=== PATIENT | male | born 1990 | race Caucasian/White ===

== ENCOUNTER 2022-04-14 07:22 | Emergency (ER) | payer SELFPAY ==
[~2022-04-14] VITALS: Ht 172.7 cm; Wt 81.0 kg
[2022-04-14 07:41] VITALS: BP 132/72
[2022-04-14] MEDS ORDERED: ACETAMINOPHEN 325MG TABLET PO ONE (09:30)
[2022-04-14] MEDS ORDERED: IBUPROFEN 400MG TABLET PO ONE (09:30)
[2022-04-14 10:33] LABS: CLARITY URINE TURBID (CLEAR); COLOR URINE YELLOW (YELLOW); KETONES URINE 1+ (NEGATIVE); LEUKOCYTE ESTERASE URINE NEGATIVE (NEGATIVE); NITRITE URINE NEGATIVE (NEGATIVE); OCCULT BLOOD URINE 1+ (NEGATIVE); PH URINE 5.5 (4.5-8.0); PROTEIN URINE TRACE (NEGATIVE); SPECIFIC GRAVITY URINE 1.031 (1.005-1.030)
[2022-04-14] MEDS ORDERED: IBUP-2028 MT (13:29)
[2022-04-14] MEDS ORDERED: DOXY100C5 MT (13:29)
[2022-04-14] MEDS ORDERED: CEFTRIAXONE SODIUM 500 MG/VIAL IM ONE (13:45)
== END 2022-04-14 14:33 | disposition home or self-care (01) ==
LOC: ER 07:22
DX: N50.811 Right testicular pain (principal)
CPT/HCPCS: 76870; 81003; 93976; 96372; 99284; J0696